=== PATIENT | female | born 2000 | race Caucasian/White ===

== ENCOUNTER 2022-07-05 11:01 | Emergency (ER) | payer SELFPAY ==
[2022-07-05 12:43] LABS: CARBON DIOXIDE,CO2 22.7 mmol/L (21.0-32.0); POTASSIUM,K 3.4 mmol/L (3.5-5.1)
== END 2022-07-05 14:05 | disposition home or self-care (01) ==
LOC: MW.ED 11:01
DX: O20.0 Threatened abortion (principal); Z3A.01 Less than 8 weeks gestation of pregnancy
CPT/HCPCS: 36415; 76817; 76817-26; 80053; 81001; 84702; 85025; 86900; 86901; 99284

== ENCOUNTER 2024-08-11 21:05 | Inpatient (IN) | payer MEDICAID ==
[2024-08-11] MEDS ORDERED: Methylergonovine 0.2 MG/1 ML Amp IM PRN (21:17)
[2024-08-11] MEDS ORDERED: Water For Irrigation,Sterile 1,000 ML Container IRR PRN (21:17)
[2024-08-11] MEDS ORDERED: Sodium Chloride 0.9% 10 ML Syringe FLUSH PRN (21:17)
[2024-08-11] MEDS ORDERED: Lidocaine 1% 50 ML MDV INJECT PRN (21:17)
[2024-08-11] MEDS ORDERED: Tranexamic Acid in NACL,ISO-OS 1,000 MG in Premix Bag 1 BAG IV PRN (21:17)
[2024-08-11] MEDS ORDERED: Sodium Chloride 0.9% 20 ML SDV IV PRN (21:17)
[2024-08-11] MEDS ORDERED: Misoprostol 200 MCG Tab PO PRN (21:17)
[2024-08-11] MEDS ORDERED: Carboprost Tromethamine 250 MCG/1 mL Vial IM PRN (21:17)
[2024-08-11] MEDS ORDERED: Sodium Chloride 0.9% 2.5 ML Syringe FLUSH PRN (21:17)
[2024-08-11] MEDS: Butorphanol 2 MG/ML SDV IVPUSH PRN (21:20)
[2024-08-11] MEDS: Ampicillin 2 GM in Sodium Chloride 0.9% 100 ML IV ONE (21:20)
[2024-08-11] MEDS ORDERED: Lactated Ringers 1,000 ML IV SCH (21:30)
[2024-08-11 22:08] LABS: HEMATOCRIT 32.5 % (37.0-47.0); HEMOGLOBIN 10.5 g/dL (12.0-16.0); MEAN CORPUSCULAR HGB CONC 32.3 g/dL (32.0-36.0); MEAN CORPUSCULAR VOLUME 80.4 fL (83.0-99.0); MEAN PLATELET VOLUME 13.4 fL (9.4-12.3); PLATELET COUNT,PLT 174 K/uL (150-400); RED BLOOD CELL COUNT 4.04 M/uL (4.10-5.30); WHITE BLOOD CELL COUNT,WBC 15.44 K/uL (3.9-11.3)
[2024-08-11] MEDS ORDERED: Phenylephrine HCl In 0.9% NaCl 1 MG/10 ML Syringe ONE (22:40)
[2024-08-11] MEDS ORDERED: Ropivacaine HCl/PF 200 ML ONE (22:40)
[2024-08-11] MEDS ORDERED: dexmedeTOMIDine HCl 200 MCG/2 ML SDV ONE (22:40)
[2024-08-11] MEDS ORDERED: ePHEDrine 50 MG/ML SDV IVPUSH PRN (22:46)
[2024-08-11] MEDS ORDERED: Phenylephrine HCl In 0.9% NaCl 1 MG/10 ML Syringe IVPUSH PRN (22:46)
[2024-08-11] MEDS ORDERED: dexmedeTOMIDine HCl 200 MCG/2 ML SDV EPIDUR SCH (23:00)
[2024-08-11] MEDS ORDERED: Ropivacaine HCl/PF 400 MG in Premix Bag 1 BAG EPIDUR SCH (23:00)
[2024-08-12] MEDS: Ampicillin 1 GM in Sodium Chloride 0.9% 50 ML IV SCH (01:19)
[2024-08-12] MEDS: Ondansetron 4 MG/2 ML SDV IVPUSH PRN (03:14)
[2024-08-12] MEDS: Oxytocin/0.9 % Sodium Chloride 30 UNIT/500 ML BAG IV SCH (04:30)
[2024-08-12] MEDS ORDERED: Docusate Sodium 100 MG Cap PO PRN (05:01)
[2024-08-12] MEDS ORDERED: Methylergonovine 0.2 MG/1 ML Amp IM PRN (05:01)
[2024-08-12 05:07] LABS: PH,UMBILICAL ARTERIAL 7.218 (7.18-7.38); PH,UMBILICAL VENOUS 7.348 (7.25-7.45)
[2024-08-12] MEDS: Acetaminophen 500 MG Tab PO PRN (05:32)
[2024-08-12] MEDS: Benzocaine/Menthol 20%-0.5% Spray 78 GM Cannister TOP PRN (08:01)
[2024-08-12] MEDS: Witch Hazel Medicated Pads 40/Jar TOP PRN (08:02)
[2024-08-12] MEDS: Lanolin 100% Cream 7 GM Tube TOP PRN (08:03)
[2024-08-12] MEDS: Ibuprofen 800 MG Tab PO PRN (18:40)
[2024-08-13 05:38] LABS: HEMATOCRIT 25.2 % (37.0-47.0)
== END 2024-08-13 17:05 | disposition home or self-care (01) | DRG 807 ==
LOC: MW.OBCHECK 21:05 → MW.OB 21:06 → MW.OBCHECK 21:18 → MW.OB 21:18 → OBSVTOIN 08-12 04:29 → MW.OB 08-12 08:08
PROVIDERS: ADMIT Obstetrics & Gynecology; ATTEND Obstetrics & Gynecology
PROC: 10E0XZZ Delivery of Products of Conception, External Approach (ICD-10-PCS; principal; 2024-08-12)
PROC: 3E0R3BZ Introduction of Anesthetic Agent into Spinal Canal, Percutaneous Approach (ICD-10-PCS; 2024-08-12)
PROC: 00HU33Z Insertion of Infusion Device into Spinal Canal, Percutaneous Approach (ICD-10-PCS; 2024-08-12)
DX: O99.824 Streptococcus B carrier state complicating childbirth (principal); Z37.0 Single live birth; Z3A.38 38 weeks gestation of pregnancy
CPT/HCPCS: 01967; 36415; 51702; 59025; 59409; 59414; 82803; 85014; 85018; 85027; 86592; 86850; 86900; 86901; A9270-GY; J0290; J0595; J2371; J2405; J2590; J2795; J3490

== ENCOUNTER 2024-11-22 07:34 | Day surgery (SDC) | payer MEDICAID ==
[~2024-11-22 07:34] MED LIST: Albuterol 0.083% 2.5 MG/3 ML Neb Soln NEB PRN; Ferric Subsulfate Topical Soln 8 GM (8 ML) Bottle ONE; HYDROmorphone 1 MG/ML Syringe IVPUSH PRN; Iodine/Potassium Iodide 5% Solution 14 ML Bottle ONE; Lidocaine 1% with EPINEPHrine 1:100,000 10 ML MDV ONE; Metoclopramide 10 MG/2 ML SDV IVPUSH PRN; Morphine 2 MG/ML SYRINGE IVPUSH PRN; Naloxone 0.4 MG/ML SDV IVPUSH PRN; Ondansetron 4 MG/2 ML SDV IVPUSH PRN; Phenylephrine HCl In 0.9% NaCl 1 MG/10 ML Syringe IVPUSH PRN; fentaNYL 50 MCG/ML SDV IVPUSH PRN
[2024-11-22] MEDS: Scopalamine 1mg/3day Transdermal Patch TOP ONE (07:50)
[2024-11-22] MEDS: Lactated Ringers 1,000 ML IV SCH (07:56)
[2024-11-22] MEDS ORDERED: Propofol 200 MG/20 ML SDV ONE ×2 (08:25→19:42)
[2024-11-22] MEDS ORDERED: Midazolam 1 MG/ML 2 ML SDV ONE ×2 (08:25→19:43)
[2024-11-22] MEDS ORDERED: fentaNYL 100 MCG/2 ML SDV ONE ×2 (08:25→19:42)
[2024-11-22] MEDS ORDERED: Lidocaine 2% 5 ML SDV ONE ×2 (08:25→19:42)
[2024-11-22] MEDS ORDERED: Dexamethasone 4 MG/ML 5 ML MDV ONE ×2 (09:05→20:26)
[2024-11-22] MEDS ORDERED: Ondansetron 4 MG/2 ML SDV ONE ×2 (09:05→19:48)
[2024-11-22] MEDS ORDERED: HYDROmorphone 1 MG/ML Syringe ONE (09:29)
[2024-11-22] MEDS ORDERED: ePHEDrine 50 MG/ML SDV ONE (09:33)
[2024-11-22] MEDS: Acetaminophen 500 MG Tab PO ONE (11:30)
[2024-11-22] MEDS ORDERED: Metoclopramide 10 MG/2 ML SDV ONE (19:48)
[2024-11-22] MEDS ORDERED: Calcium Chloride 10% 1 GM/10 ML Syringe ONE (20:10)
[2024-11-22] MEDS ORDERED: Ferric Subsulfate Topical Soln 8 GM (8 ML) Bottle ONE (20:21)
[2024-11-22] MEDS ORDERED: Sugammadex Sodium 200 MG/2 ML VIAL IV ONE ×2 (20:26→20:34)
== END 2024-11-22 11:45 | disposition home or self-care (01) ==
LOC: MW.SDS 07:34
PROVIDERS: ATTEND Obstetrics & Gynecology
DX: D06.9 Carcinoma in situ of cervix, unspecified (principal); N72 Inflammatory disease of cervix uteri; Z87.891 Personal history of nicotine dependence
CPT/HCPCS: 36415; 57460; 84703; A9270; J1100; J1171; J2003; J2250; J2405; J2704; J2765; J3010; J7120; 00940; J3490

== ENCOUNTER 2024-11-22 17:24 | Observation (INO) | payer MEDICAID ==
[2024-11-22] MEDS ORDERED: Sodium Chloride 0.9% 10 ML Syringe FLUSH PRN (17:44)
[2024-11-22] MEDS ORDERED: Sodium Chloride 0.9% 1,000 ML IV ONE (17:44)
[2024-11-22] MEDS ORDERED: Sodium Chloride 0.9% 2.5 ML Syringe FLUSH PRN (17:44)
[2024-11-22] MEDS: Lactated Ringers 1,000 ML IV STA (17:46)
[2024-11-22 17:55] LABS: BASOPHILS ABSOLUTE AUTO 0.02 K/uL (0.00-0.20); BASOPHILS PERCENT AUTO 0.2 % (0.0-1.0); HEMATOCRIT 28.4 % (37.0-47.0); HEMOGLOBIN 9.1 g/dL (12.0-16.0); IMMATURE GRAN ABSOLUTE AUTO 0.04 K/uL (0.00-0.05); IMMATURE GRAN PERCENT AUTO 0.4 % (0.0-0.4); LYMPHOCYTES ABSOLUTE AUTO 0.89 K/uL (1.00-4.80); LYMPHOCYTES PERCENT AUTO 8.7 % (24.0-44.0); MEAN CORPUSCULAR HEMOGLOBIN 26.4 pg (28.0-32.0); MEAN CORPUSCULAR VOLUME 82.3 fL (83.0-99.0); MEAN PLATELET VOLUME 12.4 fL (9.4-12.3); MONOCYTES ABSOLUTE AUTO 0.34 K/uL (0.00-0.80); MONOCYTES PERCENT AUTO 3.3 % (0.0-8.0); NEUTROPHILS ABSOLUTE AUTO 8.97 K/uL (1.80-7.70); NEUTROPHILS PERCENT AUTO 87.4 % (41.0-71.0); PLATELET COUNT,PLT 195 K/uL (150-400); RED BLOOD CELL COUNT 3.45 M/uL (4.10-5.30); WHITE BLOOD CELL COUNT,WBC 10.26 K/uL (3.9-11.3)
[2024-11-22] MEDS: Tranexamic Acid in NACL,ISO-OS 1,000 MG in Premix Bag 1 BAG IV ONE (18:09)
[2024-11-22] MEDS ORDERED: Ondansetron 4 MG/2 ML SDV IVPUSH PRN ×2 (19:06→20:00)
[2024-11-22] MEDS ORDERED: Promethazine 25 MG/ML SDV IM PRN (19:06)
[2024-11-22] MEDS ORDERED: Morphine 4 MG/ML Syringe IVPUSH PRN (19:06)
[2024-11-22] MEDS ORDERED: Lactated Ringers 1,000 ML IV SCH (19:15)
[2024-11-22] MEDS: ceFAZolin 1 GM in Sodium Chloride 0.9% 50 ML IV SCH (19:23)
[2024-11-22] MEDS: Lactated Ringers 1,000 ML IV SCH (19:23)
[2024-11-22] MEDS ORDERED: Tranexamic Acid 1,000 MG/10 ML Vial ONE (19:49)
[2024-11-22] MEDS ORDERED: HYDROmorphone 1 MG/ML Syringe IVPUSH PRN (20:00)
[2024-11-22] MEDS ORDERED: Albuterol 0.083% 2.5 MG/3 ML Neb Soln NEB PRN (20:00)
[2024-11-22] MEDS ORDERED: Phenylephrine HCl In 0.9% NaCl 1 MG/10 ML Syringe IVPUSH PRN (20:00)
[2024-11-22] MEDS ORDERED: Morphine 2 MG/ML SYRINGE IVPUSH PRN (20:00)
[2024-11-22] MEDS ORDERED: Metoclopramide 10 MG/2 ML SDV IVPUSH PRN (20:00)
[2024-11-22] MEDS ORDERED: fentaNYL 50 MCG/ML SDV IVPUSH PRN (20:00)
[2024-11-22] MEDS ORDERED: Naloxone 0.4 MG/ML SDV IVPUSH PRN (20:00)
[2024-11-22 20:03] LABS: HEMATOCRIT 21.2 % (37.0-47.0); MEAN CORPUSCULAR VOLUME 81.9 fL (83.0-99.0); MEAN PLATELET VOLUME 12.5 fL (9.4-12.3); PLATELET COUNT,PLT 165 K/uL (150-400); RED BLOOD CELL COUNT 2.59 M/uL (4.10-5.30); WHITE BLOOD CELL COUNT,WBC 9.09 K/uL (3.9-11.3)
[2024-11-22 20:19] LABS: INR 1.2 (0.86-1.11); PTT,PARTIAL THROMBOPLSTIN TIME 30.2 SEC (23.9-30.7)
[2024-11-22 20:34] LABS: A/G RATIO 1.2 (0.9-1.6); ALBUMIN 2.7 g/dL (3.4-5.0); BILIRUBIN TOTAL 0.3 mg/dL (0.2-1.0); CALCIUM 8.1 mg/dL (8.5-10.1); CARBON DIOXIDE,CO2 23.6 mmol/L (21.0-32.0); CREATININE 0.7 mg/dL (0.6-1.0); EST CRCL DRUG DOSING (CG) 103.99 mL/min; PROTEIN TOTAL,TP 4.9 g/dL (6.4-8.2)
[2024-11-22 21:18] LABS: BASOPHILS ABSOLUTE AUTO 0.01 K/uL (0.00-0.20); BASOPHILS PERCENT AUTO 0.1 % (0.0-1.0); EOSINOPHILS ABSOLUTE AUTO 0.01 K/uL (0.00-0.45); EOSINOPHILS PERCENT AUTO 0.1 % (0.0-6.0); HEMATOCRIT 24.5 % (37.0-47.0); HEMOGLOBIN 8.1 g/dL (12.0-16.0); IMMATURE GRAN ABSOLUTE AUTO 0.03 K/uL (0.00-0.05); IMMATURE GRAN PERCENT AUTO 0.3 % (0.0-0.4); LYMPHOCYTES ABSOLUTE AUTO 1.96 K/uL (1.00-4.80); LYMPHOCYTES PERCENT AUTO 19.1 % (24.0-44.0); MEAN CORPUSCULAR HEMOGLOBIN 27.8 pg (28.0-32.0); MEAN CORPUSCULAR HGB CONC 33.1 g/dL (32.0-36.0); MEAN CORPUSCULAR VOLUME 84.2 fL (83.0-99.0); MEAN PLATELET VOLUME 12.5 fL (9.4-12.3); MONOCYTES ABSOLUTE AUTO 0.93 K/uL (0.00-0.80); MONOCYTES PERCENT AUTO 9.1 % (0.0-8.0); NEUTROPHILS ABSOLUTE AUTO 7.33 K/uL (1.80-7.70); NEUTROPHILS PERCENT AUTO 71.3 % (41.0-71.0); PLATELET COUNT,PLT 128 K/uL (150-400); RED BLOOD CELL COUNT 2.91 M/uL (4.10-5.30); WHITE BLOOD CELL COUNT,WBC 10.27 K/uL (3.9-11.3)
[2024-11-23 06:16] LABS: BASOPHILS ABSOLUTE AUTO 0.01 K/uL (0.00-0.20); BASOPHILS PERCENT AUTO 0.1 % (0.0-1.0); EOSINOPHILS ABSOLUTE AUTO 0.01 K/uL (0.00-0.45); EOSINOPHILS PERCENT AUTO 0.1 % (0.0-6.0); HEMATOCRIT 22.6 % (37.0-47.0); HEMOGLOBIN 7.7 g/dL (12.0-16.0); IMMATURE GRAN ABSOLUTE AUTO 0.03 K/uL (0.00-0.05); IMMATURE GRAN PERCENT AUTO 0.3 % (0.0-0.4); LYMPHOCYTES ABSOLUTE AUTO 2.11 K/uL (1.00-4.80); LYMPHOCYTES PERCENT AUTO 20.1 % (24.0-44.0); MEAN CORPUSCULAR HEMOGLOBIN 27.8 pg (28.0-32.0); MEAN CORPUSCULAR HGB CONC 34.1 g/dL (32.0-36.0); MEAN CORPUSCULAR VOLUME 81.6 fL (83.0-99.0); MEAN PLATELET VOLUME 13.2 fL (9.4-12.3); MONOCYTES ABSOLUTE AUTO 0.82 K/uL (0.00-0.80); MONOCYTES PERCENT AUTO 7.8 % (0.0-8.0); NEUTROPHILS PERCENT AUTO 71.6 % (41.0-71.0); PLATELET COUNT,PLT 128 K/uL (150-400); RED BLOOD CELL COUNT 2.77 M/uL (4.10-5.30); WHITE BLOOD CELL COUNT,WBC 10.48 K/uL (3.9-11.3)
[2024-11-23 06:31] LABS: CALCIUM 7.9 mg/dL (8.5-10.1); CARBON DIOXIDE,CO2 23.9 mmol/L (21.0-32.0); CREATININE 0.6 mg/dL (0.6-1.0); EST CRCL DRUG DOSING (CG) 121.32 mL/min; POTASSIUM,K 4.3 mmol/L (3.5-5.1)
[2024-11-23] MEDS: Acetaminophen 325 MG Tab PO PRN (08:13)
[2024-11-23] MEDS: Desmopressin 20 MCG in Sodium Chloride 0.9% 50 ML IV ONE (08:15)
== END 2024-11-23 10:13 | disposition home or self-care (01) ==
LOC: MW.ED 17:24 → MW.OB 18:14 → MW.ED 18:33
PROVIDERS: ADMIT Obstetrics & Gynecology; ATTEND Obstetrics & Gynecology
DX: N99.820 Postprocedural hemorrhage of a genitourinary system organ or structure following a genitourinary system procedure (principal); D06.9 Carcinoma in situ of cervix, unspecified; Z79.899 Other long term (current) drug therapy
CPT/HCPCS: 36415; 36430; 57180; 80048; 80053; 85025; 85027; 85384; 85610; 85730; A9270; J0690; J2597; J3490; J7120; P9012; P9016; 00770; 99284; C1729; G0378